=== PATIENT | female | born 2000 | race Hispanic/Latino ===

== ENCOUNTER 2024-12-04 08:17 | Day surgery (SDC) | payer OTHER ==
[2024-12-04 09:09] VITALS: BMI 29.8
== END 2024-12-04 10:58 | disposition home or self-care (01) ==
LOC: CSHLD/OP 08:17
PROVIDERS: ATTEND Family Medicine
DX: O36.8130 Decreased fetal movements, third trimester, not applicable or unspecified (principal); O98.813 Other maternal infectious and parasitic diseases complicating pregnancy, third trimester; B95.1 Streptococcus, group B, as the cause of diseases classified elsewhere; O99.891 Other specified diseases and conditions complicating pregnancy; R73.03 Prediabetes; Z3A.34 34 weeks gestation of pregnancy; Z79.899 Other long term (current) drug therapy
CPT/HCPCS: 76819; 99283

== ENCOUNTER 2025-01-12 16:47 | Inpatient (IN) | payer OTHER ==
[~2025-01-12 16:47] MED LIST: Bupivacaine 0.25% HCL 30 ML VIAL ONE
[2025-01-12] MEDS ORDERED: Calcium Gluc 4.6 MEQ/10 ML (100 MG/ML) SLOW IVP PRN (16:56)
[2025-01-12] MEDS ORDERED: hydrALAZINE 20 MG/ML VIAL SLOW IVP PRN (16:56)
[2025-01-12] MEDS ORDERED: Diphenoxylate HCl/Atropine Tablet PO PRN (16:56)
[2025-01-12] MEDS ORDERED: Carboprost 250 MCG/ML AMP IM PRN (16:56)
[2025-01-12] MEDS ORDERED: Acetaminophen 500 MG TAB PO PRN (16:56)
[2025-01-12] MEDS ORDERED: Ondansetron PF 4 MG/2 ML Vial IVP PRN (16:56)
[2025-01-12] MEDS ORDERED: Oxytocin 30 units/NS 500 ML 500 ML IV SCH ×2 (17:00→18:15)
[2025-01-12 17:17] VITALS: BMI 32.9
[2025-01-12 17:39] LABS: #Basophils Less than 0.03 10x3/uL (0.0-0.2); #Eosinophils 0.06 10x3/uL (0.0-0.5); #Monocytes 0.59 10x3/uL (0.0-1.1); #Neutrophils 7.77 10x3/uL (1.5-8.4); %Basophils 0.1 % (0.0-2.0); %Eosinophils 0.6 % (0.0-6.0); %Lymphocytes 16.9 % (18.0-47.0); %Monocytes 5.8 % (0.0-10.0); %Neutrophils 76.3 % (40.0-75.0); Hematocrit 36.6 % (34.9-44.5); Hemoglobin 12.1 g/dL (12.0-15.5); Mean Corpuscular Hemoglobin 29.5 pg (27.0-33.0); Mean Corpuscular Volume 89.3 fL (81.6-98.3); Platelet Count 177 10x3/uL (150-450); Red Blood Cell (RBC) Count 4.10 10x6/uL (3.90-5.03); White Blood Cell (WBC) Count 10.18 10x3/uL (3.5-10.5)
[2025-01-12 17:51] LABS: ALT (SGPT) 13 U/L (Less than 34); AST (SGOT) 30 U/L (11-34); Albumin 3.2 g/dL (3.1-4.5); Alkaline Phosphatase 107 U/L (40-110); Anion Gap 16 mmol/L (10-20); BUN (Urea Nitrogen) 9 mg/dL (7.0-18.7); Bilirubin, Total 0.3 mg/dL (0.3-1.2); Calc. Creatinine Clearance 175 mL/min (70-130); Calcium 9.0 mg/dL (7.8-10.44); Carbon Dioxide 16 mmol/L (22-29); Chloride 109 mmol/L (98-107); Globulin 3.8 g/dL (2.4-3.5); Glucose 184 mg/dL (70-105); Potassium 3.7 mmol/L (3.5-5.1); Sodium 137 mmol/L (136-145)
[2025-01-12] MEDS ORDERED: Lidocaine 1% (PF) 30 ML VIAL SC PRN (18:15)
[2025-01-12 18:52] LABS: Protein, Urine Random Quant 18.0 mg/dL (1-14)
[2025-01-12 19:44] LABS: Syphilis Antibody Index 0.05 S/CO (<1.00 Non-Reactive)
[2025-01-12 19:50] LABS: Hep B Surf Ag - L&D Non-Reactive S/CO (NonReactive)
[2025-01-13] MEDS: Penicillin G Potassium 5 MILL.UNITS in Sodium Chloride 0.9% 100 ML IVPB SCH (03:43)
[2025-01-13] MEDS: fentaNYL/Ropivacaine Epidural 100 ML ONE (04:40)
[2025-01-13] MEDS ORDERED: diphenhydrAMINE 50 MG/ML VIAL IVP PRN (04:44)
[2025-01-13] MEDS ORDERED: Ondansetron PF 4 MG/2 ML Vial IVP PRN (04:44)
[2025-01-13] MEDS ORDERED: fentaNYL 2 mcg/Ropivacaine 0.2% Epidural 100 ML CADD EPIDURAL SCH (04:45)
[2025-01-13] MEDS ORDERED: Communication Order-Pharmacy FS SCH (04:45)
[2025-01-13] MEDS: Penicillin G 2.5 MILL.units 2.5 MILL.UNITS in Premix 1 BAG IVPB SCH (07:02)
[2025-01-13] MEDS: Tranexamic Acid 1,000 MG/10 ML VIAL IVP PRN (07:50)
[2025-01-13] MEDS: Ibuprofen 800 MG TAB PO PRN (08:46)
[2025-01-13] MEDS ORDERED: Preparation H Ointment 28 GM TUBE PR PRN (10:29)
[2025-01-13] MEDS ORDERED: Bisacodyl 10 MG SUPP PR PRN (10:29)
[2025-01-13] MEDS ORDERED: Benzocaine-Menthol 82.5 ML CAN TOP PRN (10:29)
[2025-01-13] MEDS ORDERED: Oxytocin 30 units/NS 500 ML 500 ML IV SCH (10:29)
[2025-01-13] MEDS ORDERED: Lanolin Ointment 7 GM TUBE TOP PRN (10:29)
[2025-01-13] MEDS ORDERED: hydrALAZINE 20 MG/ML VIAL SLOW IVP PRN (10:29)
[2025-01-13] MEDS ORDERED: Milk Of Magnesia 30 ML UDCUP PO PRN (10:29)
[2025-01-13] MEDS: Methylergonovine 0.2 MG/ML VIAL ONE (11:18)
[2025-01-13] MEDS: Tranexamic Acid 1,000 MG/10 ML VIAL ONE (11:18)
[2025-01-13] MEDS: Penicillin G Potassium 5 MILL.UNITS VIAL ONE (11:18)
[2025-01-13] MEDS: Carboprost 250 MCG/ML AMP ONE (11:18)
[2025-01-13] MEDS: Boostrix 0.5 ML (Tdap) VIAL (>/=7 yrs of age) IM ONE (11:18)
[2025-01-13] MEDS: Ibuprofen 800 MG TAB PO SCH (14:11)
[2025-01-13] MEDS: Ferrous Sulfate 325 MG TAB PO SCH (15:06)
[2025-01-13] MEDS: Acetaminophen 325 MG TAB PO PRN (20:03)
[2025-01-15 12:12] VITALS: BP 123/73; TEMP 98.2
== END 2025-01-15 12:55 | disposition home or self-care (01) | DRG 806 ==
LOC: CSHLD 16:47 → CSHPP 01-13 10:28
PROVIDERS: ADMIT Family Medicine; ATTEND Family Medicine
PROC: 10E0XZZ Delivery of Products of Conception, External Approach (ICD-10-PCS; principal; 2025-01-12)
PROC: 10907ZC Drainage of Amniotic Fluid, Therapeutic from Products of Conception, Via Natural or Artificial Opening (ICD-10-PCS; 2025-01-12)
PROC: 10H07YZ Insertion of Other Device into Products of Conception, Via Natural or Artificial Opening (ICD-10-PCS; 2025-01-12)
PROC: 10H073Z Insertion of Monitoring Electrode into Products of Conception, Via Natural or Artificial Opening (ICD-10-PCS; 2025-01-12)
DX: O13.4 Gestational [pregnancy-induced] hypertension without significant proteinuria, complicating childbirth (principal); O41.03X0 Oligohydramnios, third trimester, not applicable or unspecified; Z37.0 Single live birth; O99.824 Streptococcus B carrier state complicating childbirth; O62.2 Other uterine inertia; Z3A.39 39 weeks gestation of pregnancy
CPT/HCPCS: 36415; 51702; 80053; 82570; 84156; 85025; 85461; 86780; 86850; 86900; 86901; 87340; 90384; 96372; 99285; J0595; J0665; J2540; J3105; J7120